=== PATIENT | male | born 1955 | race Caucasian/White ===

== ENCOUNTER 2018-07-03 06:47 | Day surgery (SDC) | payer BC ==
[2018-07-03] MEDS ORDERED: LIDOCAINE 2% (SDV) 5 ML INJ (08:53)
[2018-07-03] MEDS ORDERED: PROPOFOL 60 ML (08:53)
[2018-07-03] MEDS ORDERED: PROPOFOL 20 ML (09:37)
== END 2018-07-03 11:23 | disposition home or self-care (01) ==
LOC: GIL 06:47
DX: Z12.11 Encounter for screening for malignant neoplasm of colon (principal); K29.30 Chronic superficial gastritis without bleeding; D12.5 Benign neoplasm of sigmoid colon; K21.9 Gastro-esophageal reflux disease without esophagitis; K44.9 Diaphragmatic hernia without obstruction or gangrene; K64.8 Other hemorrhoids; F17.200 Nicotine dependence, unspecified, uncomplicated
CPT/HCPCS: 43239